=== PATIENT | male | born 1995 | race Caucasian/White ===

== ENCOUNTER 2018-12-09 23:54 | Emergency (ER) | payer MEDICAID ==
[~2018-12-09] VITALS: Ht 170.2 cm; Wt 49.0 kg
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
[2018-12-10] MEDS ORDERED: OXYcodone/APAP 5/325MG TABLET PO ONE (01:30)
[2018-12-10] MEDS ORDERED: IBUPROFEN 600 MG TABLET PO ONE (01:30)
[2018-12-10] MEDS ORDERED: OXYcodone/APAP 5/325MG TABLET ONE (01:56)
[2018-12-10] MEDS ORDERED: IBUPROFEN 600 MG TABLET ONE (01:57)
[2018-12-10 02:05] VITALS: BP 107/71
== END 2018-12-10 02:18 | disposition home or self-care (01) ==
LOC: ED 12-10 02:00
DX: S62.231A Other displaced fracture of base of first metacarpal bone, right hand, initial encounter for closed fracture (principal); F17.200 Nicotine dependence, unspecified, uncomplicated; V87.8XXA Person injured in other specified noncollision transport accidents involving motor vehicle (traffic), initial encounter; Y93.55 Activity, bike riding; Y92.89 Other specified places as the place of occurrence of the external cause; Y99.8 Other external cause status
CPT/HCPCS: 29125; 99283

== ENCOUNTER 2019-03-16 02:37 | Emergency (ER) | payer MEDICAID ==
[~2019-03-16] VITALS: Ht 180.3 cm; Wt 46.4 kg
[2019-03-16 04:48] VITALS: BP 116/43
== END 2019-03-16 04:51 | disposition home or self-care (01) ==
LOC: ED 04:45
DX: R41.82 Altered mental status, unspecified (principal); F11.129 Opioid abuse with intoxication, unspecified; J45.909 Unspecified asthma, uncomplicated; F17.200 Nicotine dependence, unspecified, uncomplicated; Z72.9 Problem related to lifestyle, unspecified
CPT/HCPCS: 96372; 99284; J2310